=== PATIENT | male | born 1995 | race Caucasian/White ===

== ENCOUNTER 2021-12-07 09:45 | Outpatient (REF) | payer MEDICAID, SELFPAY ==
--- NOTE | 2021-12-07 09:49 | EMG_ITS ---
Bilateral median and ulnar motor and sensory studies were performed. Bilateral radial sensory studies were performed and paraspinal muscles were tested with a needle. IMPRESSION: Mild to moderate bilateral median neuropathy across carpal tunnel. MD RASHARD Garvey/MORIS / [id number]
== END 2021-12-07 09:46 | disposition home or self-care (01) ==
LOC: HO.NEURO 09:45
PROVIDERS: PCP Student in an Organized Health Care Education/Training Program; Visit Provider Student in an Organized Health Care Education/Training Program
DX: G56.03 Carpal tunnel syndrome, bilateral upper limbs (principal)
CPT/HCPCS: 95886; 95911

== ENCOUNTER 2022-10-23 13:20 | Outpatient (REF) | payer MEDICAID, SELFPAY ==
--- NOTE | ~2022-10-23 | XR_ITS ---
EXAMINATION: XR LUMBOSACRAL SPINE CLINICAL INFORMATION: Low back pain status post injury COMPARISON: None TECHNIQUE: Three views of the lumbosacral spine. XR/XR lumbar spine 2-3V FINDINGS/IMPRESSION: Mild to moderate disc space narrowing at L5-S1. Disc spaces otherwise appear preserved. Straightening of the normal lumbar lordosis. The vertebral bodies and posterior elements appear unremarkable. The paraspinal soft tissues appear unremarkable.
== END 2022-10-23 13:21 | disposition home or self-care (01) ==
LOC: HO.XRAY 13:20
PROVIDERS: PCP Student in an Organized Health Care Education/Training Program; Visit Provider Emergency Medicine
DX: M54.50 Low back pain, unspecified (principal)
CPT/HCPCS: 72100

== ENCOUNTER 2025-08-28 14:29 | Emergency (ER) | payer MEDICAID, SELFPAY ==
--- NOTE | ~2025-08-28 | XR_ITS ---
CLINICAL HISTORY: pain 3 view left shoulder Comparison: None provided Findings: No fractures or dislocations. No significant arthritic change. No erosions. No radiopaque foreign body. Visualized left lung is clear. IMPRESSION: No acute left shoulder findings. This document has been electronically signed by: James Bray MD on 08/28/2025 16:08:16
[2025-08-28 15:02] VITALS: BP 140/83; PULSE 96; RESP 16; TEMP 36.6; O2SAT 98; BMI 39.9
--- NOTE | 2025-08-28 15:06 | ED_ITS ---
HPI - General Adult General Chief complaint: Extremity Problem Stated complaint: l shoulder pain Time Seen by Provider: 08/28/25 15:31 Source: patient Mode of arrival: ambulatory Limitations: no limitations History of Present Illness ED Provider: Darleen Dorman PA-C HPI narrative: Patient is a 29 year old assigned male at with no reported medical history presenting to the emergency department today with left shoulder pain. Patient states that over the last few days he has noticed that his left shoulder has been painful with certain movements. 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 Patient denies any other complaints at this time. Onset (ago): day(s) Relieving factors: none Exacerbating factors: movement Associated symptoms: denies other symptoms Treatments prior to arrival: none Related Data Allergies Allergy/AdvReac Type Severity Reaction Status Date / Time No Known Allergies Allergy Verified 08/28/25 15:03 Review of Systems Constitutional: Constitutional: Reports as per HPI Eyes: Eyes: Reports as per HPI ENT: Reports as per HPI Cardiovascular: Cardiovascular: Reports as per HPI Respiratory: Respiratory: Reports as per HPI Gastrointestinal: Gastrointestinal: Reports as per HPI Genitourinary: Genitourinary: Reports as per HPI Musculoskeletal: Musculoskeletal: Reports as per HPI Integumentary/Breasts: Skin/Breast: Reports as per HPI Neurologic: Reports as per HPI Psychiatric: Psychiatric: Reports as per HPI Endocrine: Endocrine: Reports as per HPI Hematologic/Lymphatic: Hematologic/Lymphatic: Reports as per HPI Allergic/Immunologic: Allergic/Immunologic: Reports as per HPI PMF Past Medical History Attestation statement: The following information was validated with the patient. Source: old records reviewed and nursing notes reviewed Social History Social History Advance Directives: No Advance Directives Information Provided: No Physical Exam ED Vital Signs: Vital Signs - 24 hr 08/28/25 15:02 08/28/25 15:46 Temperature 98 F 98 F Pulse Rate 96 96 Respiratory Rate 16 16 Blood Pressure 140/83 H 140/83 H Pulse Oximetry 98 98 Oxygen Delivery Method Room Air Room Air BMI result Body Mass Index 39.9 Const General: cooperative, no acute distress, alert and awake Nutritional Appearance: well nourished Orientation/consciousness: patient oriented x3 HENMT Head: Yes normal to inspection and Yes atraumatic Ears: hearing grossly normal bilaterally and external ears normal General nose exam: Normal external nose present, no nasal discharge noted and no epistaxis Face and sinus: Yes normal facial exam, No abrasion and No laceration Mouth: Normal oral and palatal mucosa present, no drooling and no muffled voice Eyes General: appearance normal, both eyes and all related structures Periorbital: periorbital findings normal Eyelids: Yes eyelids normal Conjunctivae: conjunctivae normal Pupils: Equal, round and reactive pupils present EOM: EOMs intact bilaterally Neck Neck: Yes normal visual inspection and Yes full ROM Resp Effort & Inspection: normal respiratory effort and able to speak in complete sentences Neuro General: patient oriented x3, moves all extremities and CN's II-XI intact bilaterally Cranial nerves: Yes Equal, round and reactive pupils present Cognition (Neuro): normal cognition Extrem Other: pain with left shoulder ROM General: Yes normal to inspection, Yes full ROM and Yes capillary refill normal Psych Appearance: grossly normal Mental Status: mental status grossly normal Affect: normal affect Attitude: cooperative Thought process: Normal thought process present Thought content: Normal thought content present Insight: Good insight present (Psych) Course Course Course Narrative: RME, this is a rapid medical exam performed by Jl Tobin please refer to primary provider for complete H&P- 29-year-old male presents for evaluation of left shoulder pain. 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 However no falls. Plan for x-ray of the left shoulder. Symptoms started 3 days ago Medical Decision Making Medical Decision Making MDM Narrative: Patient is a 29 year old assigned male at with no reported medical history presenting to the emergency department today with left shoulder pain. Patient's physical exam was as noted in the physical exam portion of this note. Patient's left shoulder x-ray showed no acute process. Patient's clinical presentation is most consistent with a left rotator cuff injury / dysfunction. I explained my physical exam findings as well as all test results to the patient. I answered all questions asked by the patient. I stressed the importance of the patient taking his medication as directed (either prescribed or as the over the counter packaging recommends). I stressed the importance of the patient following up with his primary care provider and the orthopedic team. I stressed the importance of the patient returning to the emergency department immediately if his symptoms were to worsen or if he were to develop any dizziness, shortness of breath, difficulty breathing, chest pain, blurry vision, loss of vision, nausea, vomiting, abdominal pain, fever, chills, back pain, or any other complaints. Patient verbalized agreement and understanding with this treatment plan and discharge. Differential Diagnosis Differential Diagnoses: The differential diagnosis associated with the presentation includes Left shoulder pain Rotator cuff injury Admission/Observation Consideration of admission/observation: Escalation of care including admission/observation considered Patient would have been admitted to the hospital had his work up had any findings where hospital admission was appropriate and his clinical presentation warranted hospital admission. Independent Interpretation I performed an independent interpretation of an: Plain X-Ray Interpretation: My interpretation is in agreement with the radiologist's impression of this imaging study as written below. CLINICAL HISTORY: pain 3 view left shoulder Comparison: None provided Findings: No fractures or dislocations. No significant arthritic change. No erosions. No radiopaque foreign body. Visualized left lung is clear. IMPRESSION: No acute left shoulder findings. This document has been electronically signed by: James Bray MD on 08/28/2025 16:08:16 Dictated By: James Bray MD Signed By: Electronically signed by James Bray MD 08/28/25 0705 Radiology Impression Discussion of test interpretation with radiology: I have reviewed the radiologist's reading. Discharge Plan Discharge Clinical Impression: Acute pain of left shoulder Patient Disposition: Home, Self-Care Instructions: Shoulder Pain (ED) Additional Instructions: Your left shoulder x-ray showed no evidence of an acute tanvi process / fracture however, I am suspicious you have a left rotator cuff injury. Follow up with the orthopedic team and do NOT sling the shoulder or you could freeze it. IF you are prescribed home medications and/or you are taking over the counter medications at home - it is very important you continue to do so as prescribed / directed unless told otherwise by a healthcare provider. Follow up with your primary care provider. Do your best to stay well hydrated and rest. Return to the emergency department immediately if your symptoms worsen or if you develop any numbness, tingling, dizziness, shortness of breath, difficulty breathing, chest pain, blurry vision, loss of vision, nausea, vomiting, abdominal pain, fever, chills, back pain, or any other complaints. Please see the information below about our Patient Portal. If you are not yet enrolled in the [facility] Patient Portal, you will receive an enrollment email invitation following your visit to any [facility] setting. You may also self-enroll in the Patient Portal by visiting our website: [email or web address] The following information is required to access the Patient Portal: - Your [facility] Medical Record Number - Your personal home email address (must match what is in your electronic medical record, Registration staff can assist with this) - Name - Date of Capabilities of the Patient Portal: - Message some providers - View upcoming appointments - Access your health summary, medical history, and visit history - View current conditions and allergies - View procedure and lab results - View your medications, including guidelines, side effects, and precautions - Complete pre-appointment questionnaires requested by your provider - Ready summary reports of your office visits and procedures To access the Patient Portal Mobile Santiago, follow these directions: - Search Skataz in the Santiago Store or Le[employer]us Store - Download the Santiago - Search for [facility] - Enter your login/password Referrals: [facility] Orthopedic Surgeons [Provider Group] Referral Note: Call to establish and follow up with the orthopedic team for y our left shoulder pain. Trish Edouard MD [Primary Care Provider, Internal Medicine] Interventions: ED Discharge Assessment Last Done: 08/28/25 15:46 Discharge Date/Time: 08/28/25 15:52 Print Language: Cook Islander
[2025-08-28 15:46] VITALS: BP 140/83; PULSE 96; RESP 16; TEMP 36.6; O2SAT 98
--- OUTSIDE RECORDS SUMMARY | 2025-08-28 15:49 | XMS_ITS | Clinical Summary ---
Author Organization [facility] Address [address] [place] [address] [address] [place] [address] Care Team Providers Care Epic Manager Name Role Phone Unavailable Primary Care Provider Unavailabl e Allergies No known active allergies Medications sertraline (Zoloft) 100 MG tablet Take 100 mg by mouth in the morning. 09/24/2022 Active cyclobenzaprine (Flexeril) 10 MG tabletIndicatio ns:Back injury, initial encounter Take 0.5 tablets (5 mg) by mouth 3 times daily for 10 days. 15 tablet 10/18/2022 Active Active Problems No known active problems Social History Tobacco Use Types Packs/Day Years Used Date Smoking Tobacco: Never Smokeless Tobacco: Never Tobacco Cessation:Counseling Given: Not Answered Sex and Gender Information Value Date Recorded Sex Assigned at Male 08/06/2022 10:36 AM EDT Legal Sex Male 10:36 AM EDT Gender Identity Male 08/06/2022 10:36 AM EDT Sexual Orientation Bisexual 08/06/2022 10 :36 AM EDT Last Filed Vital Signs Vital Sign Reading Time Taken Comments Blood Pressure 132/79 10/18/2022 3:31 PM EST Pulse 93 10/18/2022 3:31 PM EST Temperature 36.9 C (98.4 F) 10/18/2022 3:31 PM EST Respiratory Rate 18 10/18/2022 3:31 PM EST Oxygen Saturation 96% 10/18/2022 3:31 PM EST Inhaled Oxygen Concentration - - Weight 142 kg (312 lb 3.2 oz) 10/18/2022 3:31 PM EST Height 175.3 cm (5' 9 ) 10/18/2022 3:31 PM EST Body Mass Index 46.1 10/18/2022 3:31 PM EST Plan of Treatment Health Maintenance Due Date Last Done Comments Depression Screening 1994 HIV Screening 1994 SDOH Screening 1994 Disability Screening 1994 Alcohol/Substance Use Screening 2006 Family Planning (PISQ) 2009 HPV Vaccines (2 - Male 3-dose series) 07/23/2012 06/25/2012 Hepatitis C Screening 2012 Tobacco Screening 10/18/2023 10/18/2022 COVID-19 Vaccine (3 - season) 2025 02/28/2021, 01/30/2021 Influenza Vaccine (#1) 2025 07/12/2019, 2017 DTaP/Tdap/Td Vaccines (8 - Td or Tdap) 07/12/2029 07/12/2019, 12/11/2006, 11/10/1999, Additional history exists Zoster Vaccines (1 of 2) 2044 RSV Patients and Patients Aged 60 years or older (1 - 1-dose 75+ series) 2069 Hepatitis B Vaccines Completed 05/21/1995, 01/19/1995, 1994 HIB Vaccines Completed 02/19/1996, 05/07, 03/21/1995, Additional history exists IPV Vaccines Completed 11/10/1999, 05/07, 03/21/1995, Additional history exists Meningococcal Vaccine Completed 06/25/2012, 007 Hepatitis A Vaccines Aged Out No long er eligible based on patient's age to complete this topic Meningococcal B Vaccine Aged Out No l onger eligible based on patient's age to complete this topic Pneumococcal Vaccine: Pediatrics (0 to 5 Years) and At-Risk Patients (6 to 49) Years Aged Out No longer eligible based on patient's age to complete this topic RSV under 20 months Aged Out No longe r eligible based on patient's age to complete this topic Rotavirus Vaccines Aged Out No longer eligible based on patient's age to complete this topic [facility]
--- OUTSIDE RECORDS SUMMARY | 2025-08-28 15:49 | XMS_ITS | Clinical Summary ---
Author Organization [facility] Address [address] [place] [address] Care Team Providers Care Reiki Practitioner Name Role Phone Sara Ramirez MD Primary Care Provider Surgical History Surgery Date Site/Laterality Comments OTHER SURGICAL HISTORY PROCEDURE: DENIES PREVIOUS SURGERY Family History Relation Name Status Comments Brother 1 Alive Juan Ramon, obese Brother 2 Alive 1/2 Mat Father Alive Mother Alive Sister Alive Maria Alejandra Social History Tobacco Use Types Packs/Day Years Used Date Smoking Tobacco: Never Smokeless Tobacco: Never Alcohol Use Standard Drinks/Week Comments Not Asked 0 (1 standard drink = 0.6 oz pur e alcohol) Sex and Gender Information Value Date Recorded Sex Assigned at Not on file Legal Sex Male 8:44 PM EST Gender Identity Not on file Sexual Orientation Not on file Obstetrics History Plan of Treatment Health Maintenance Due Date Last Done Comments DTaP,Tdap,and Td Vaccines (1 - Tdap) 2013 Hepatitis B Vaccines (1 of 3 - 19+ 3-dose series) 2013 HPV Vaccines (1 - 3-dose SCD M series) 2021 HIV Screening 11/01/2023 Hepatitis C Screening 11/01/2023 Social Influencers of Health Screening 11/01/2023 Depression Screening 10/07/2024 COVID-19 Vaccine (1 - 2024-2 6 season) 2025 Influenza Vaccine (#1) 2025 RSV Immunization Adult Patie nts (1 - 1-dose 75+ series) 2069 HIB Vaccines Aged Out No longer eligi ble based on patient's age to complete this topic Hepatitis A Vaccines Aged Out No long er eligible based on patient's age to complete this topic IPV Vaccines Aged Out No longer eligi ble based on patient's age to complete this topic MMR Vaccines Aged Out No longer eligi ble based on patient's age to complete this topic Meningococcal ACWY Vaccine Aged Out N o longer eligible based on patient's age to complete this topic Meningococcal B Vaccine Aged Out No l onger eligible based on patient's age to complete this topic Pneumococcal Vaccine: Pediat rics (0 to 5 Years) and At-Risk Patients (6 to 49 Years) Aged Out No longer eligible b ased on patient's age to complete this topic RSV Immunization Patients Un corbin 20 months Aged Out No longer eligible b ased on patient's age to complete this topic Varicella Vaccines Aged Out No longer eligible based on patient's age to complete this topic Care Teams Reiki Practitioner Relationship Specialty Start Date End Date Sara Ramirez MD [address] [place] [phone] PCP - General 09/26/00
== END 2025-08-28 15:52 | disposition home or self-care (01) ==
LOC: HO.ED 15:46
PROVIDERS: Emergency Provider Emergency Medicine Emergency Medical Services; PCP Student in an Organized Health Care Education/Training Program
DX: M25.512 Pain in left shoulder (principal)
CPT/HCPCS: 73030; 99282; 99283

== ENCOUNTER → 2025-08-28 15:06 | Outpatient (BNV) | payer MEDICAID, SELFPAY | PROVIDERS: Emergency Provider Emergency Medicine Emergency Medical Services; PCP Student in an Organized Health Care Education/Training Program; Visit Provider Radiology Vascular & Interventional Radiology | DX: M25.512 Pain in left shoulder (principal) | CPT/HCPCS: 73030 ==